=== PATIENT | male | born 1995 | race Caucasian/White ===

== ENCOUNTER 2018-07-01 00:26 | Emergency (ER) | payer OTHER ==
[2018-07-01] MEDS ORDERED: Acetaminophen/oxyCODONE 325-5 MG Tab PO ONE (00:27)
[2018-07-01 00:34] VITALS: BP 148/109
--- NOTE | 2018-07-01 00:55 | EDM.PDOC ---
ED HPI GENERAL MEDICAL PROBLEM - General Chief Complaint: Lower Extremity Injury/Pain Stated Complaint: knee dislocation Time Seen by Provider: 07/01/18 00:43 Source of Information: Reports: Patient History Limitations: Reports: Intoxication - History of Present Illness Onset: Today, Sudden Location: Reports: Lower Extremity, Right Quality: Reports: Ache, Throbbing Severity: Severe Improves with: Reports: None Worsens with: Reports: Movement Context: Reports: Other (reports he was wrestling with a friend who accidentally wrenched the pateint's knee ) Associated Symptoms: Reports: No Other Symptoms Left Knee Pain Score (Numeric/FACES): 7 - Related Data Allergies Allergy/AdvReac Type Severity Reaction Status Date / Time ibuprofen [From Motrin] Allergy Intermediate Burning Verified 07/01/18 00:27 tramadol Allergy Intermediate Hives Verified 07/01/18 00:27 codeine Allergy Cannot Verified 07/01/18 00:27 Remember sucralfate [From Carafate] Allergy Nausea and Verified 07/01/18 00:27 Vomiting Home Meds: Home Meds busPIRone [Buspar] 10 mg PO DAILY 07/01/18 [History] Past Medical History - Past Health History Medical/Surgical History: Denies Medical/Surgical History Musculoskeletal History: Reports: Fracture Psychiatric History: Reports: Anxiety - Past Surgical History GI Surgical History: Reports: Hernia, Inguinal Musculoskeletal Surgical History: Reports: None Social & Family History - Family History Family Medical History: Noncontributory - Tobacco Use Smoking Status *Q: Current Every Day Smoker Years of Tobacco use: 10 Packs/Tins Daily: 1 - Recreational Drug Use Recreational Drug Use: No Review of Systems - Review of Systems Review Of Systems: See Below Constitutional: Reports: No Symptoms Musculoskeletal: Reports: Other (Reports RIGHT knee pain. Denies pain in the hip , ankle, or foot. Denies pain elsewhere in the leg. Denies other MSK concerns.) Neurological: Reports: No Symptoms ED EXAM, GENERAL - Physical Exam Exam: See Below Exam Limited By: Intoxication General Appearance: Alert, Moderate Distress Head: Atraumatic, Normocephalic Respiratory/Chest: No Respiratory Distress Cardiovascular: Normal Peripheral Pulses, Regular Rate, Rhythm Peripheral Pulses: 2+: Radial (L), Radial (R), Popliteal (L), Popliteal (R), Dorsalis Pedis (L), Dorsalis Pedis (R) Back Exam: Normal Inspection Extremities: Other (There is swelling and tenderness about the proximal anterior portion of the knee. There is no deformity. Pulses are strong throughout the leg. Sensation is intact throughout the leg. There is limited ROM against active and passive resistance. The MSK exam is otherwise without acute findings.) Neurological: Alert, Other (appears intoxicated) Skin Exam: Warm, Dry, Intact Course - Vital Signs Last Recorded V/S: Last Vital Signs Temp 37.6 C 07/01/18 00:31 Pulse 98 07/01/18 00:31 Resp 20 07/01/18 00:31 BP 148/109 H 07/01/18 00:31 Pulse Ox 99 07/01/18 00:31 - Orders/Labs/Meds Orders: Active Orders 24 hr Category Date Time Status Knee 3V Rt [CR] Routine Exams 07/01/18 Taken Meds: Medications Discontinued Medications Generic Name Dose Route Start Last Admin Trade Name Freq PRN Reason Stop Dose Admin Hydromorphone HCl 0.5 mg 07/01/18 01:23 07/01/18 01:27 Dilaudid IVPUSH 07/01/18 01:24 0.5 mg ONETIME ONE Administration Departure - Departure Time of Disposition: 02:19 Disposition: Home, Self-Care 01 Condition: Good Clinical Impression: Fracture of tibial plateau - Discharge Information *PRESCRIPTION DRUG MONITORING PROGRAM REVIEWED*: Not Applicable *COPY OF PRESCRIPTION DRUG MONITORING REPORT IN PATIENT ALLI: Not Applicable Instructions: How to Use a Knee Brace, Tibial Fracture, Adult Referrals: Debbie Nguyen PA-C [Primary Care Provider] - Forms: ED Department Discharge - My Orders Last 24 Hours: My Active Orders 07/01/18 Knee 3V Rt [CR] Routine - Assessment/Plan Last 24 Hours: My Active Orders 07/01/18 Knee 3V Rt [CR] Routine Assessment:: Plain film XR of the knee reveals a tibial plateau fracture which extends into the articular surface as well as a hemarthrosis. I contacted Dr. Bell of [facility] who reviewed the films and discussed the case with me. She advised that the patient be placed in a knee immobilizer, given crutches for non weightbearing status, and to follow up at their clinic tomorrow morning. I did the interventions as instructed. I advised the patient to rest, hydrate, wear knee brace and not bear weight, OTC pain control PRN symptoms, fu with ortho tomorrow am, go to ER if change or worse. Patient reports understanding and agreement. He is stable and pending dc with sober equipment driver at time of disposition. medical staff assistant to arrange sober transport.
[2018-07-01] MEDS ORDERED: HYDROmorphone 1 MG/ML Syringe IVPUSH ONE ×2 (01:23→02:19)
[2018-07-01] MEDS ORDERED: Take Home: Acetaminophen/oxyCODONE 325-5 MG, 2 Tab Pack PO ONE (02:31)
== END 2018-07-01 03:20 | disposition home or self-care (01) ==
LOC: CC.ED 00:26
DX: S82.141A Displaced bicondylar fracture of right tibia, initial encounter for closed fracture (principal); F17.210 Nicotine dependence, cigarettes, uncomplicated; Z88.8 Allergy status to other drugs, medicaments and biological substances; Z88.5 Allergy status to narcotic agent; W50.2XXA Accidental twist by another person, initial encounter; Y93.72 Activity, wrestling
CPT/HCPCS: 73562-RT; 96374; 96376; 99284; A9270-GY; J1170

== ENCOUNTER 2019-05-23 14:16 | Emergency (ER) | payer OTHER ==
[2019-05-23] MEDS ORDERED: Phenylephrine 2.5% Ophth Soln 2 ML Bot EYEBOTH ONE (14:17)
[2019-05-23] MEDS ORDERED: Tetracaine HCl/PF 0.5% 4 ML Bottle EYEBOTH ONE (14:17)
[2019-05-23] MEDS ORDERED: Bacitracin/Neomycin/Polymyxin B Ophth Oint 3.5 GM Tube EYEBOTH ONE (14:17)
[2019-05-23 14:20] VITALS: BP 133/76; PULSE 108
[2019-05-23] MEDS ORDERED: Tetracaine HCl/PF 0.5% 4 ML Bottle EYELF ONE (14:30)
[2019-05-23] MEDS ORDERED: Phenylephrine 2.5% Ophth Soln 15 ML Bot EYELF ONE ×2 (14:45)
--- NOTE | 2019-05-23 14:56 | EDM.PDOC ---
ED HPI GENERAL MEDICAL PROBLEM - General Chief Complaint: Eye Problems Stated Complaint: SCRATCHED MY EYE Time Seen by Provider: 05/23/19 14:29 Source of Information: Reports: Patient, Family History Limitations: Reports: No Limitations - History of Present Illness INITIAL COMMENTS - FREE TEXT/NARRATIVE: in with c/o was picking up sticks and one struck him in his left eye this afternoon, c/o pain to left eye and watering, no change in vision other than is light sensitive, no other complaints, TT is UTD Onset: Today Duration: Hour(s): Location: Reports: Other (left eye) Quality: Reports: Ache, Burning Severity: Mild Improves with: Reports: None Worsens with: Reports: None Context: Reports: Trauma Associated Symptoms: Reports: No Other Symptoms 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 (see below) Other Treatments BULKING MACHINE OPERATOR: EYE DROPS Left Eye Pain Score (Numeric/FACES): 6 - Related Data Allergies Allergy/AdvReac Type Severity Reaction Status Date / Time ibuprofen [From Motrin] Allergy Intermediate Burning Verified 05/23/19 14:21 tramadol Allergy Intermediate Hives Verified 05/23/19 14:21 codeine Allergy Cannot Verified 05/23/19 14:21 Remember sucralfate [From Carafate] Allergy Nausea and Verified 05/23/19 14:21 Vomiting Home Meds: Home Meds busPIRone [Buspar] 10 mg PO BID 07/01/18 [History] Past Medical History - Past Health History Medical/Surgical History: Denies Medical/Surgical History Musculoskeletal History: Reports: Fracture Psychiatric History: Reports: Anxiety - Past Surgical History GI Surgical History: Reports: Hernia, Inguinal Musculoskeletal Surgical History: Reports: None Social & Family History - Family History Family Medical History: Noncontributory - Tobacco Use Smoking Status *Q: Current Every Day Smoker Years of Tobacco use: 10 Packs/Tins Daily: 1 - Living Situation & Occupation Living situation: Reports: with Family ED ROS GENERAL - Review of Systems Review Of Systems: See Below Constitutional: Reports: No Symptoms HEENT: Reports: Eye Pain. Denies: Ear Discharge, Ear Pain, Eye Discharge, Glasses, Vertigo Respiratory: Reports: No Symptoms Cardiovascular: Reports: No Symptoms GI/Abdominal: Reports: No Symptoms. Denies: Nausea, Vomiting Skin: Reports: No Symptoms Neurological: Reports: No Symptoms. Denies: Headache ED EXAM GENERAL W FULL EYE - Physical Exam Exam: See Below Exam Limited By: No Limitations General Appearance: Alert, WD/WN, No Apparent Distress Eye Exam: Right Eye: Normal Inspection, Bilateral Eye: EOMI, PERRL Visual Acuity (R) 20/: 20 Visual Acuity (L) 20/: 20 With Correction: No Eyelids: Bilateral: Normal Appearance Conjunctiva & Sclera: Bilateral: Normal Appearance Cornea Exam: Right: Normal Appearance, Left: Corneal Abrasion, Examined with Flourescein Extraocular Movements: Bilateral: Intact Pupils: Normal Accommodation Pupillary Size: Bilateral: 3 mm Pupillary Reaction: Bilateral: Brisk Anterior Chamber: Bilateral: Normal Appearance Posterior Chamber: Bilateral: Normal Funduscopic Ears: Normal External Exam Nose: Normal Inspection Throat/Mouth: Normal Inspection, Normal Lips Head: Atraumatic, Normocephalic Neck: Normal Inspection, Supple, Non-Tender, Full Range of Motion Respiratory/Chest: No Respiratory Distress, Lungs Clear Cardiovascular: Normal Peripheral Pulses, Regular Rate, Rhythm Back Exam: Normal Inspection, Full Range of Motion Extremities: Normal Inspection, Normal Range of Motion Neurological: Alert, Oriented, Normal Cognition, Normal Gait, No Motor/Sensory Deficits Psychiatric: Normal Affect, Normal Mood Skin Exam: Warm, Dry, Intact, Normal Color ED EYE w/ Add Procedure - Eye Procedure Alcaine Drops Administered: Yes Cyclogel 2 Drops Administered: Left Eye (2 gtts OS every 5 min x 3 doses) Antibiotic Oinment/Drps Admin: Left Eye (neosporin ointment) Course - Vital Signs Last Recorded V/S: Last Vital Signs Temp 37.5 C 05/23/19 14:17 Pulse 108 H 05/23/19 14:17 Resp 16 05/23/19 14:17 BP 133/76 05/23/19 14:17 Pulse Ox 100 05/23/19 14:17 Departure - Departure Time of Disposition: 14:56 Disposition: Home, Self-Care 01 Condition: Good Clinical Impression: Left corneal abrasion - Discharge Information *PRESCRIPTION DRUG MONITORING PROGRAM REVIEWED*: Not Applicable *COPY OF PRESCRIPTION DRUG MONITORING REPORT IN PATIENT ALLI: Not Applicable Instructions: Corneal Abrasion Referrals: PCP,Unknown [Primary Care Provider] - Additional Instructions: dark room as discussed, avoid bright lights Neosporin ointment, 1 ribbon 3 x a day for 5 days follow up with your family doctor or car sander this week, call Saturday for an appointment time return to the ED in 24 hours if not better, sooner if worse or problems - Problem List & Annotations (1) Left corneal abrasion SNOMED Code(s): 48281321246570695 Code(s): S05.02XA - INJ CONJUNCTIVA AND CORNEAL ABRASION W/O FB, LEFT EYE, INIT Status: Acute Priority: High Current Visit: Yes Qualifiers: Encounter type: initial encounter Qualified Code(s): S05.02XA - Injury of conjunctiva and corneal abrasion without foreign body, left eye, initial encounter - Problem List Review Problem List Initiated/Reviewed/Updated: Yes - Assessment/Plan Plan: as above
[2019-05-23] MEDS ORDERED: Bacitracin/Neomycin/Polymyxin B Ophth Oint 3.5 GM Tube EYELF SCH (15:00)
== END 2019-05-23 15:05 | disposition home or self-care (01) ==
LOC: CC.ED 14:16
DX: S05.02XA Injury of conjunctiva and corneal abrasion without foreign body, left eye, initial encounter (principal); Z88.6 Allergy status to analgesic agent; Z88.5 Allergy status to narcotic agent; Z79.899 Other long term (current) drug therapy; F41.9 Anxiety disorder, unspecified; W22.8XXA Striking against or struck by other objects, initial encounter
CPT/HCPCS: 99283; A9270-GY

== ENCOUNTER 2020-03-16 12:07 | Emergency (ER) | payer OTHER ==
[2020-03-16 12:30] VITALS: PULSE 82
[2020-03-16 12:43] LABS: CHLORIDE,CL 100 mEq/L (98-106); SODIUM,NA 138 mEq/L (136-145)
--- NOTE | 2020-03-16 12:44 | EDM.PDOC ---
ED HPI GENERAL MEDICAL PROBLEM - General Chief Complaint: General Stated Complaint: VOMIT WITH BLOOD Time Seen by Provider: 03/16/20 12:30 Source of Information: Reports: Patient History Limitations: Reports: No Limitations - History of Present Illness INITIAL COMMENTS - FREE TEXT/NARRATIVE: Pt states that he was working and was having some nausea and went to the bathroom and he vomited. This occurred about 1115 this AM. Contents were " normal puke" to start with and then after vomiting really hard he saw "fresh bright red blood" He estimates it to be about a cup because it turned the toilet red. He states he had been vomiting really hard when it happened. Currently he has less nausea, no further vomiting, no diarrhea or fevers and does have pain to the mid epigastric area with palpation. Onset: Today Quality: Reports: Dull - Related Data Allergies Allergy/AdvReac Type Severity Reaction Status Date / Time ibuprofen [From Motrin] Allergy Intermediate Burning Verified 03/16/20 12:15 tramadol Allergy Intermediate Hives Verified 03/16/20 12:15 codeine Allergy Cannot Verified 03/16/20 12:15 Remember Home Meds: Home Meds busPIRone [Buspar] 10 mg PO BID 07/01/18 [History] Pantoprazole Sodium [Protonix] 40 mg PO DAILY 03/16/20 [History] Past Medical History - Past Health History Medical/Surgical History: Denies Medical/Surgical History Musculoskeletal History: Reports: Fracture Psychiatric History: Reports: Anxiety - Past Surgical History GI Surgical History: Reports: Hernia, Inguinal Musculoskeletal Surgical History: Reports: None Social & Family History - Family History Family Medical History: Noncontributory - Tobacco Use Smoking Status *Q: Current Every Day Smoker Years of Tobacco use: 10 Packs/Tins Daily: 1 - Caffeine Use Caffeine Use: Reports: None - Alcohol Use Days Per Week of Alcohol Use: 7 Number of Drinks Per Day: 5 Total Drinks Per Week: 35 - Recreational Drug Use Recreational Drug Use: No - Living Situation & Occupation Living situation: Reports: with Family ED ROS GENERAL - Review of Systems Review Of Systems: See Below Constitutional: Denies: Fever, Chills HEENT: Reports: No Symptoms Respiratory: Reports: No Symptoms Cardiovascular: Reports: No Symptoms GI/Abdominal: Reports: Abdominal Pain, Other (see HPI) : Reports: No Symptoms Musculoskeletal: Reports: No Symptoms Skin: Reports: No Symptoms ED EXAM, GENERAL - Physical Exam Exam: See Below Exam Limited By: No Limitations General Appearance: Alert, WD/WN, No Apparent Distress Ears: Normal External Exam, Normal TMs Throat/Mouth: Normal Inspection, Normal Oropharynx Head: Atraumatic Neck: Normal Inspection, Supple, Non-Tender, Full Range of Motion Respiratory/Chest: No Respiratory Distress, Lungs Clear Cardiovascular: Regular Rate, Rhythm, No Edema GI/Abdominal: Normal Bowel Sounds, Soft, Tender (to the mid epigastric area.) Neurological: Alert, Oriented Skin Exam: Warm, Dry, Intact Course - Vital Signs Last Recorded V/S: Last Vital Signs Temp 97.6 F 03/16/20 12:17 Pulse 82 03/16/20 12:17 Resp 18 03/16/20 12:17 BP 152/95 H 03/16/20 13:14 Pulse Ox 97 03/16/20 12:17 - Orders/Labs/Meds Orders: Active Orders 24 hr Category Date Time Status Pantoprazole [ProTONIX IV] Med 03/16/20 12:45 Ordered 40 mg IVPUSH Q24H Medication Orders Pantoprazole Sodium (Protonix Iv) 40 mg IVPUSH Q24H JOHNNIE Last Admin: 03/16/20 12:48 Dose: 40 mg Labs: Laboratory Tests 03/16/20 03/16/20 Range/Units 12:25 12:25 WBC 6.1 (5.0-10.0) 10^3/uL RBC 4.52 (4.50-6.00) 10^6/uL Hgb 15.3 (14.0-18.0) g/dL Hct 43.2 (40.0-54.0) % MCV 95.6 H (82.0-94.0) fL MCH 33.8 H (27.0-32.0) pg MCHC 35.4 (33.0-38.0) g/dL RDW Coeff of Gage 11.9 (11.0-15.0) % Plt Count 215 (150-400) 10^3/uL Neut % (Auto) 64.2 (35-85) % Lymph % (Auto) 27.0 (10-55) % [place] % (Auto) 7.8 (0-16) % Eos % (Auto) 0.5 (0-5) % Baso % (Auto) 0.5 (0-3) % Neut # (Auto) 3.93 (1.80-7.00) 10^3/uL Lymph # (Auto) 1.65 (1.00-4.80) 10^3/uL [place] # (Auto) 0.48 (0.00-0.80) 10^3/uL Eos # (Auto) 0.03 (0.00-0.45) 10^3/uL Baso # (Auto) 0.03 10^3/uL Sodium 138 (136-145) mEq/L Potassium 4.3 (3.5-5.0) mEq/L Chloride 100 (98-106) mEq/L Carbon Dioxide 31 (21-32) mmol/L BUN 12 (7-18) mg/dL Creatinine 1.0 (0.7-1.3) mg/dL Est Cr Clr Drug Dosing 119.23 mL/min Estimated GFR (MDRD) > 60 (>=60) mL/min Glucose 103 H (75-99) mg/dL Calcium 9.0 (8.4-10.1) mg/dL Total Bilirubin 0.7 (0.0-1.0) mg/dL AST 43 H (15-37) U/L ALT 44 (12-78) U/L Alkaline Phosphatase 100 (46-116) U/L Total Protein 7.4 (6.4-8.2) g/dL Albumin 4.2 (3.4-5.0) g/dL Meds: Medications Generic Name Dose Route Start Last Admin Trade Name Freq PRN Reason Stop Dose Admin Pantoprazole Sodium 40 mg 03/16/20 12:45 03/16/20 12:48 Protonix Iv IVPUSH 40 mg Q24H JOHNNIE Administration Departure - Departure Time of Disposition: 13:25 Disposition: Home, Self-Care 01 Condition: Good Clinical Impression: Vomiting Qualifiers: Vomiting type: hematemesis Nausea presence: with nausea Qualified Code(s): K92.0 - Hematemesis - Discharge Information *PRESCRIPTION DRUG MONITORING PROGRAM REVIEWED*: Not Applicable *COPY OF PRESCRIPTION DRUG MONITORING REPORT IN PATIENT ALLI: Not Applicable Referrals: PCP,None [Primary Care Provider] - Forms: ED Department Discharge Additional Instructions: start Carafate 1 gram 4 times a day- before meals and at bedtime push fluids continue on the protonix make clinic appt in a week to have BP checked and to recheck your abdomen recheck if any further vomiting avoid any alcohol or antiinflammatories. Sepsis Event Note - Evaluation Sepsis Screening Result: No Definite Risk - Focused Exam Vital Signs: Vital Signs Temp Pulse Resp BP Pulse Ox 03/16/20 13:14 152/95 H 03/16/20 12:58 150/98 H 03/16/20 12:17 97.6 F 82 18 142/96 H 97 Date Exam was Performed: 03/16/20 Time Exam was Performed: 13:28 - Problem List & Annotations (1) Vomiting SNOMED Code(s): 519203721 Code(s): R11.10 - VOMITING, UNSPECIFIED Status: Acute Priority: High Current Visit: Yes Qualifiers: Vomiting type: hematemesis Nausea presence: with nausea Qualified Code(s) : K92.0 - Hematemesis - Problem List Review Problem List Initiated/Reviewed/Updated: Yes - My Orders Last 24 Hours: My Active Orders 03/16/20 12:45 Pantoprazole [ProTONIX IV] 40 mg IVPUSH Q24H - Assessment/Plan Last 24 Hours: My Active Orders 03/16/20 12:45 Pantoprazole [ProTONIX IV] 40 mg IVPUSH Q24H
[2020-03-16] MEDS: Pantoprazole 40 MG Vial IVPUSH SCH (12:48)
[2020-03-16 13:14] VITALS: BP 152/95
== END 2020-03-16 13:35 | disposition home or self-care (01) ==
LOC: CC.ED 12:07
DX: K92.0 Hematemesis (principal); F41.9 Anxiety disorder, unspecified; Z79.899 Other long term (current) drug therapy; Z88.5 Allergy status to narcotic agent; Z88.6 Allergy status to analgesic agent
CPT/HCPCS: 36415; 80053; 85025; 96374; 99284-25; C9113